=== PATIENT | male | born 1960 | race Caucasian/White ===

== ENCOUNTER → 2017-02-05 | Outpatient (CLI) | payer MEDICARE, OTHER ==
--- NOTE | 2017-02-05 15:34 | CT ---
EXAMINATION TYPE: CT chest w con DATE OF EXAM: 02/05/2017 2:10 PM COMPARISON: Prior CT chest 30 Mar 2016 HISTORY: Lung nodule Automated exposure control for dose reduction was used. CONTRAST: CT scan of the chest is performed with IV Contrast, patient injected with 100 mL of Omnipaque 300. FINDINGS: LUNGS: Stable appearance, extensive emphysematous changes are again noted. No endobronchial lesion, p leural or pericardial effusion. Apical nodularity in the right is stable, some minimal associated yennifer undglass opacity again noted felt likely to BE postinflammatory MEDIASTINUM: There are no greater than 1 cm hilar or mediastinal lymph nodes. No pericardial effusi on is seen. AORTA: No additional significant abnormality is seen. OTHER: No additional significant abnormality is seen. IMPRESSION: Essentially stable exam. No significant interval change. Emphysema.
== END | disposition home or self-care (01) ==
LOC: RADCTMAIN 13:02
PROVIDERS: ATTEND Internal Medicine Critical Care Medicine
DX: J43.9 Emphysema, unspecified (principal)
CPT/HCPCS: 71260; Q9967

== ENCOUNTER 2017-12-16 10:52 | Emergency (ER) | payer MEDICARE ==
--- NOTE | 2017-12-16 10:46 | US ---
EXAMINATION TYPE: US venous doppler duplex LE RT DATE OF EXAM: 12/16/2017 10:36 AM COMPARISON: NONE CLINICAL HISTORY: M79.661 Pain in Rt Lower Leg. SIDE PERFORMED: RT TECHNIQUE: The lower extremity deep venous system is examined utilizing real time linear array sonog татьяна with graded compression, doppler sonography and color-flow sonography. VESSELS IMAGED: External Iliac Vein (EIV) Common Femoral Vein Deep Femoral Vein Greater Saphenous Vein * Femoral Vein Popliteal Vein Small Saphenous Vein * Proximal Calf Veins (* superficial vessels) Grayscale, color doppler, spectral doppler imaging performed of the deep veins of the lower extremity . Filling defect noted within the mid femoral vein. DVT not excluded. Remaining deep venous structure s demonstrate normal compressibility and are free of filling defect. Subcutaneous nodular area at the site of clinical concern measures 9 x 5 mm. IMPRESSION: Right Leg: mid fem vein 0.7 cm filling defect , possible dvt
[2017-12-16 11:01] VITALS: PULSE 75
--- NOTE | 2017-12-16 11:47 | ED ---
General Adult HPI - General Chief complaint: Extremity Problem,Nontraumatic Stated complaint: RT LEG, POSITIVE BLOODCLOT Time Seen by Provider: 12/16/17 11:23 Source: patient, RN notes reviewed Mode of arrival: wheelchair Limitations: no limitations - History of Present Illness Initial comments: Patient 57-year-old male who presents emergency room today from ultrasound with possible blood clot. Patient states that there is some swelling and pain to the right calf approximately 3 weeks ago. States the swelling has decreased but has had a bump to the medial aspect. States he talked with family doctor but had a outpatient ultrasound performed today. He states that from ultrasound he was sent here to the emergency room. He denies any other complaints or associated symptoms. Denies any specific injury or trauma. Denies any shortness of breath or difficulty breathing. Patient denies any recent fever, chills, shortness of breath, chest pain, back pain, abdominal pain , nausea or vomiting, numbness or tingling, dysuria or hematuria, constipation or diarrhea, headaches or visual changes, or any other complaints. - Related Data Home Medications Medication Instructions Recorded Confirmed Diltiazem HCl [Diltiazem 24Hr ER] 180 mg PO DAILY 03/30/16 12/16/17 Isosorbide Mononitrate ER [Imdur] 30 mg PO DAILY 03/30/16 12/16/17 Baclofen [Lioresal] 20 mg PO BID 12/16/17 12/16/17 HYDROcodone/APAP 7.5-325MG [[place] 1 tab PO Q6H PRN 12/16/17 12/16/17 7.5-325] Previous Rx's Medication Instructions Recorded Aspirin EC [Ecotrin Low Dose] 81 mg PO DAILY #1 tablet. 03/31/16 Apixaban [Eliquis] 5 mg PO DIRECTED #28 tab 12/16/17 Allergies Allergy/AdvReac Type Severity Reaction Status Date / Time Penicillins Allergy Rash/Hives Verified 12/16/17 11:51 Review of Systems ROS Statement: Those systems with pertinent positive or pertinent negative responses have been documented in the HPI. ROS Other: All systems not noted in ROS Statement are negative. Past Medical History Past Medical History: Chest Pain / Angina, Hyperlipidemia, Hypertension, Prostate Disorder Additional Past Medical History / Comment(s): IBS, BPH History of Any Multi-Drug Resistant Organisms: None Reported Past Surgical History: Heart Catheterization, Hernia Repair, Orthopedic Surgery Additional Past Surgical History / Comment(s): 2013 cardiac cath-normal, R INGUINAL HERNIA, umbilical HERNIA, ARTHROSCOPY RT KNEE, prostate bx-negative, colonoscopy-normal. Past Anesthesia/Blood Transfusion Reactions: Postoperative Nausea & Vomiting ( PONV) Past Psychological History: No Psychological Hx Reported Smoking Status: Current every day smoker Past Alcohol Use History: None Reported Past Drug Use History: None Reported - Past Family History Father Family Medical History: Cancer Mother Family Medical History: No Reported History Additional Family Medical History / Comment(s): Mother is 75 yrs old. General Exam - General Exam Comments Initial Comments: General: The patient is awake and alert, in no distress, and does not appear acutely ill. Eye: Pupils are equal, round and reactive to light, extra-ocular movements are intact. No nystagmus. There is normal conjunctiva bilaterally. No signs of icterus. Ears, nose, mouth and throat: There are moist mucous membranes and no oral lesions. Neck: The neck is supple, there is no tenderness or JVD. Cardiovascular: There is a regular rate and rhythm. No murmur, rub or gallop is appreciated. Respiratory: Lungs are clear to auscultation, respirations are non-labored, breath sounds are equal. No wheezes, stridor, rales, or rhonchi. Musculoskeletal: Normal ROM. Palpable nodule area mid medial right calf. Strength 5/5. Sensation intact. Pulses equal bilaterally 2+. Neurological: A&O x 3. CN II-XII intact, There are no obvious motor or sensory deficits. Coordination appears grossly intact. Speech is normal. Skin: Skin is warm and dry and no rashes or lesions are noted. Psychiatric: Cooperative, appropriate mood & affect, normal judgment. Limitations: no limitations Course Vital Signs 12/16/17 10:59 Temperature 98.1 F Pulse Rate 75 Respiratory 15 Rate Blood Pressure 129/87 O2 Sat by Pulse 98 Oximetry Medical Decision Making - Medical Decision Making The patient's ultrasound has been reviewed and does show evidence for possible DVT. There is a simultaneous nodular area of the site measuring 9 x 5 mm. There is admitted for moral vein 0.77 cm filling defect which may be a possible DVT. Results were discussed with the patient. He described a incidents where he had some leg swelling 3 weeks ago has gone down. Patient will be treated for DVT started on eliquis. Starter pack is available at the pharmacy will be given first dose here. Advised to return to the emergency room symptoms increase worsen or for any concerns. Disposition Clinical Impression: DVT (deep venous thrombosis) Disposition: HOME SELF-CARE Condition: Stable Instructions: Deep Venous Thrombosis (ED) Additional Instructions: Please use medication as prescribed and follow-up the family doctor and vascular surgeon as discussed. Please return here to emergency room if any symptoms increase or worsen or for any other concerns. Prescriptions: Apixaban [Eliquis] 5 mg PO DIRECTED #28 tab Referrals: Sloan Zepeda III, MD [Primary Care Provider] - 1-2 days Oliver Moreau MD [STAFF PHYSICIAN] - 1-2 days Time of Disposition: 12:16
[2017-12-16] MEDS ORDERED: APIXABAN 5 MG TAB PO STA (12:11)
[2017-12-16 12:36] VITALS: BP 142/69; RESP 18; TEMP 98.2
== END 2017-12-16 12:36 | disposition home or self-care (01) ==
LOC: EC 10:52
DX: I82.401 Acute embolism and thrombosis of unspecified deep veins of right lower extremity (principal); I10 Essential (primary) hypertension; F17.200 Nicotine dependence, unspecified, uncomplicated; Z79.899 Other long term (current) drug therapy; Z88.0 Allergy status to penicillin; Z98.890 Other specified postprocedural states
CPT/HCPCS: 99283

== ENCOUNTER 2018-12-20 13:09 | Emergency (ER) | payer OTHER, MEDICARE ==
[2018-12-20 13:14] VITALS: RESP 18
[2018-12-20] MEDS ORDERED: HYDROcodone/APAP 5-325MG 1 EACH TAB PO STA (14:21)
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
--- NOTE | 2018-12-20 14:38 | XR ---
EXAM TYPE: LUMBAR SPINE X RAY SERIES COMPARISON: NONE HISTORY: Pain TECHNIQUE: 4 views are submitted. FINDINGS: Alignment is anatomic. The pedicles are intact. The transverse processes are intact. There is no s pondylolysis or spondylolisthesis. Hypertrophic and degenerative changes of the vertebral column. Ma rked facet arthropathy L4-5 and L5-S1. Vascular calcifications noted. There is a retrolisthesis of L3 on L4 by approximately 5 mm. IMPRESSION: 1. Multilevel degenerative disc disease and hypertrophic changes. Retrolisthesis of L3 on L4..
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
[2018-12-20 16:12] VITALS: BP 134/89; PULSE 73; TEMP 98.8
== END 2018-12-20 16:11 | disposition home or self-care (01) ==
LOC: EC 13:09
DX: M79.18 Myalgia, other site (principal); M51.36 Other intervertebral disc degeneration, lumbar region; M54.2 Cervicalgia; M25.552 Pain in left hip; I10 Essential (primary) hypertension; I25.10 Atherosclerotic heart disease of native coronary artery without angina pectoris; F17.200 Nicotine dependence, unspecified, uncomplicated; Z98.890 Other specified postprocedural states; Z79.899 Other long term (current) drug therapy; Z88.0 Allergy status to penicillin; V49.40XA Driver injured in collision with unspecified motor vehicles in traffic accident, initial encounter
CPT/HCPCS: 72050; 72100; 73502; 99284

== ENCOUNTER → 2019-01-11 | Outpatient (CLI) | payer OTHER ==
--- NOTE | 2019-01-11 08:20 | CT ---
EXAMINATION TYPE: CT brain wo/w con DATE OF EXAM: 01/11/2019 COMPARISON: 12/06/2011 CT brain and MRI brain dated 02/14/2016 HISTORY: Headache CT DLP: 2161 mGycm Automated Exposure Control for Dose Reduction was Utilized. TECHNIQUE: CT scan of the head is performed with IV contrast.,CT scan of the head is performed withou t and with without and with IV Contrast, patient injected with 100 mL of Isovue 300. FINDINGS: Noncontrast images show no acute intracranial hemorrhage or midline shift. No suspicious extra-axial fluid collection is seen. There is an elongated focal area of hypoattenuation within the right frontal lobe that is unchanged from the prior of 2012 representing nonspecific white matter jean nge. The other foci of white matter change seen on the prior MRI are not well visualized on CT given the increase sensitivity of MRI. Ventricles and sulci are within normal limits in size. Postcontrast images show no suspicious enhancing intraparenchymal mass. The globes are intact and the visualized s inuses are clear. Cerebellar tonsils are low-lying without herniation. IMPRESSION: 1. No acute intracranial hemorrhage, midline shift or mass effect. No abnormal intracranial enhanceme nt. 2. Resolution of the previously seen paranasal sinus mucosal thickening in comparison to the prior MR I of 2015. 3. Solitary focus of right frontal nonspecific white matter changes seen on the prior CT of 2011. The other foci of white matter change seen on the prior MRI are not visualized on CT. Again these may re present sequela of migraines or microangiopathy.
== END ==
LOC: RADCTMAIN 06:58
PROVIDERS: ATTEND Family Medicine
DX: R90.89 Other abnormal findings on diagnostic imaging of central nervous system (principal)
CPT/HCPCS: 70470; Q9967

== ENCOUNTER → 2019-03-15 | Outpatient (CLI) | payer MEDICARE ==
--- NOTE | 2019-03-17 12:45 | MR ---
EXAMINATION TYPE: MR Prostate wo/w con DATE OF EXAM: 03/15/2019 COMPARISON: None IMAGE QUALITY: Satisfactory. INDICATION: Elevated PSA PSA: 6.0 ng/ml Recent Biopsy and Date: 2013 Pathology Report (If Applicable): Benign prostatic tissue TECHNIQUE: Examination was performed using a 3T MRI without an endorectal coil. Multiparametric imaging was perf ormed with T2 mutliplanar sequences, axial diffusion weighted imaging and dynamic contrast enhanced i maging, utilizing 7 mL intravenous Gadavist gadolinium contrast. FINDINGS: There is no clinically significant cancer identified. PROSTATE VOLUME: 4.1 x 4.2 x 5.0 Vol= 45.1 cc (enlarged greater than 30 cc) PREDICTED PSA DENSITY: 5.4 ng/ml/cc Within the peripheral zone there are multiple linear wedge-shaped areas of T2 hypointensity. A 2 mm f ocus within the left lateral mid gland is contiguous with an area of linear fibrosis on small field o f view T2 image 17 and is hypointense both on DWI and ADC map suggesting fibrosis rather than a true lesion. Seminal vesicles are symmetric. Urinary bladder displays anterior wall thickening that is lik tammie related to incomplete distention. No local adenopathy. Few sigmoid diverticula are present withou t surrounding inflammatory change. Bone marrow signal appears within normal limits. IMPRESSION: A focus of clinically significant cancer is not identified. Mild benign prostatic hyperplasia and eric ear fibrosis within the peripheral zones that may be on the basis of prior prostatitis. Highest Assessment Category: 2 ? Low (clinically significant cancer is unlikely to be present) False negative rates for MRI range from 5-20% depending on risk profile. Assessment Categories: 1 ? Very low (clinically significant cancer is highly unlikely to be present) 2 ? Low (clinically significant cancer is unlikely to be present) 3 ? Intermediate (the presence of clinically significant cancer is equivocal) 4 ? High (clinically significant cancer is likely to be present) 5 ? Very high (clinically significant cancer is highly likely to be present) Locations: PZ = peripheral zone; TZ = transition zone CZ=central zone; AFS = anterior fibromuscular stroma a=anterior half (i.e. PZa=anterior half of peripheral zone); pm= posterior medial (i.e PZpm) pl = postero-lateral (i.e. PZpl); p = posterior half (i.e. TZp) ; a = anterior half (i.e TZa or P Za) Other: N=no or no; E= equivocal; Y=yes EPE = extraprostatic extension NVB = neurovascular bundle NA = not applicable/not available
== END ==
LOC: RADMRIMAIN 11:53
PROVIDERS: ATTEND Urology
DX: N40.0 Benign prostatic hyperplasia without lower urinary tract symptoms (principal)
CPT/HCPCS: 72197; A9585

== ENCOUNTER → 2019-05-12 | Outpatient (CLI) | payer MEDICARE | END | disposition home or self-care (01) | LOC: LABWHC1 07:21 | PROVIDERS: ATTEND Surgery Plastic and Reconstructive Surgery | DX: Z71.51 Drug abuse counseling and surveillance of drug abuser (principal) | CPT/HCPCS: 80307 ×2; G0482 ==

== ENCOUNTER → 2019-05-15 | Outpatient (CLI) | payer MEDICARE ==
[2019-05-15 15:05] LABS: HCT 46.3 % (39.0-53.0); HGB 15.5 gm/dL (13.0-17.5); MCH 28.9 pg (25.0-35.0); MCHC 33.4 g/dL (31.0-37.0); MCV 86.5 fL (80.0-100.0); Platelet Count 403 k/uL (150-450); RBC 5.35 m/uL (4.30-5.90); RDW 14.2 % (11.5-15.5); WBC 9.2 k/uL (3.8-10.6)
== END | disposition home or self-care (01) ==
LOC: LABPAT 13:47
PROVIDERS: ATTEND Surgery Plastic and Reconstructive Surgery
DX: Z01.818 Encounter for other preprocedural examination (principal)
CPT/HCPCS: 36415; 85027

== ENCOUNTER 2019-05-18 14:03 | Day surgery (SDC) | payer MEDICARE ==
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
[~2019-05-18 14:03] MED LIST: DEXAMETHASONE SOD PHOSPHATE 10 MG/ML 1 ML VIAL IV ONE; HEPARIN SODIUM,PORCINE 5,000 UNIT/ML 1 ML VIAL SQ ONE; LACTATED RINGERS 1,000 ML IV SCH; LIDOCAINE 1% 20 ML VIAL (10MG/ML) FOR IV START INTRADERMA PRN; ONDANSETRON 4 MG/2 ML VIAL IVP ONE; ONDANSETRON 4 MG/2 ML VIAL IVP PRN; ceFAZolin IN SWFI 2 GM/20 ML SYRINGE IVP ONE
[2019-05-18] MEDS ORDERED: MIDAZOLAM (PF) 2 MG/2 ML VIAL IVP ONE (15:11)
[2019-05-18] MEDS ORDERED: fentaNYL (PF) 50 MCG/ML 2 ML AMP IVP ONE (15:11)
--- NOTE | 2019-05-18 15:24 | P.ANPRN ---
Procedure Note - Anesthesia - Nerve Block Performed Bilateral Transversus Abdominis Single Time Out Performed: Yes Date of Procedure: 05/18/19 Procedure Start Time: 15:10 Procedure Stop Time: 15:20 Location of Patient Procedure: PreOp Indication: Acute Post-Operative Pain, Requested by physician (Dr Mccurdy) Specifically requested for management of pain by DrDer: Virginia Mccurdy Sedation Type: Sedate with meaningful contact maintained Preparation: Sterile Prep Position: Supine Catheter: None Needle Types: Facet Needle Gauge: 20 Technique: Ultrasound Injectate: 0.5% Ropivacaine (see comment for volume) (30 mls) Blood Aspirated: No Pain Paresthesia on Injection Noted: No Resistance on Injection: Normal Events: Uneventful and Well Tolerated
[2019-05-18] MEDS ORDERED: NEOSTIGMINE 1 MG/ML 10 ML VIAL ONE (16:40)
[2019-05-18] MEDS ORDERED: PROPOFOL 10 MG/ML 20 ML VIAL IV ONE (16:40)
[2019-05-18] MEDS ORDERED: GLYCOPYRROLATE 0.2 MG/ML 2 ML VIAL ONE (16:40)
[2019-05-18] MEDS ORDERED: PHENYLEPHRINE-0.9% NACL SYG 1 MG/10 ML SYRINGE ONE (16:40)
[2019-05-18] MEDS ORDERED: ROCURONIUM BROMIDE 10 MG/ML 10 ML VIAL IV ONE (16:40)
[2019-05-18] MEDS ORDERED: fentaNYL (PF) 50 MCG/ML 2 ML AMP ONE (16:40)
[2019-05-18] MEDS ORDERED: ROPIVACAINE 5 MG/ML 30 ML VIAL ONE (16:40)
[2019-05-18] MEDS ORDERED: SUCCINYLCHOLINE CHLORIDE 100 MG/5 ML SYR IV ONE (16:40)
[2019-05-18] MEDS ORDERED: MIDAZOLAM 2 MG/2 ML VIAL ONE (16:40)
[2019-05-18] MEDS ORDERED: LIDOCAINE 1% INJ 10MG/ML (20 ML MDV) ONE (16:40)
[2019-05-18] MEDS ORDERED: LIDOCAINE 1%-EPI 1:100,000 20 ML VIAL SQ ONE (16:47)
[2019-05-18] MEDS ORDERED: TAMSULOSIN 0.4 MG CAP.ER.24H PO STA ×2 (19:26→20:50)
[2019-05-18] MEDS: HYDROmorphone 0.5 MG/0.5 ML SYRINGE IVP PRN ×2 (19:28→19:33)
[2019-05-18] MEDS ORDERED: TAMSULOSIN 0.4 MG CAP.ER.24H PO ONE (19:55)
[2019-05-18] MEDS: KETOROLAC 30 MG/ML 1 ML VIAL IVP SCH ×3 (20:48→20:50)
[2019-05-18 20:55] VITALS: RESP 18; TEMP 97.5
--- NOTE | 2019-05-18 20:56 | P.OP ---
Date of Procedure: 05/18/19 Description of Procedure: SURGEON: VIRGINIA MCCURDY MD PREOPERATIVE DIAGNOSES: 1. Bilateral inguinal hernia, recurrent 2. History of congestive heart failure, diastolic 3. Chronic tobacco abuse 4. Chronic pain syndrome 5. Hyperlipidemia POSTOPERATIVE DIAGNOSES: 1. Bilateral inguinal hernia, recurrent, incarcerated 2. History of congestive heart failure, diastolic 3. Chronic tobacco abuse 4. Chronic pain syndrome 5. Hyperlipidemia 6. Recurrent direct inguinal right incarcerated hernia, 4 cm 7. Recurrent direct left inguinal hernia, incarcerated 3 cm OPERATION: 1. Robotic-assisted da Emmy Xi laparoscopic repair of recurrent incarcerated right direct inguinal hernia with mesh, 11.[address] 2. Robotic-assisted da Emmy Xi laparoscopic repair of recurrent incarcerated incarcerated left direct inguinal hernia with mesh, 11.[address] 3. Excision of mesh, foreign body right inguinal canal, 4 x 4 cm 4. Resection of incarcerated left inguinal lipoma, 3 cm x 4 5. Robotic-assisted da Emmy Xi laparoscopic lysis of adhesions over 1 hour performed for resection of mesh ANESTHESIA: General with local anesthetic ESTIMATED BLOOD LOSS: 5 mL. SPECIMENS: 1. Incarcerated right inguinal foreign body/mesh 4 x 4 centimeters 2. Left inguinal hernia sacWith lipoma, 3 x 4 cm COMPLICATIONS: None. INDICATIONS: The patient is a 58-year-old gentleman who presents with history of recurrent bilateral inguinal hernia. He reports moderate pain and palpable mass of the right groin. Now presents for definitive surgical intervention. Laparoscopic versus open and robotic approaches were discussed. Benefits and risks including bleeding, infection, injury to the vas deferens as well as sterility and chronic groin pain were reviewed. Placement of mesh was also described. Informed consent was obtained. DESCRIPTION: The patient was brought to the operating room and initially laid in supine position. The abdomen had been prepped and draped in standard sterile fashion. Ioban draping was also placed. Prior to incision, a timeout protocol was confirmed with surgical team regarding patient's name including procedures to be performed and location along the bilateral groins. Initial positioning for the robotic assisted ports were selected whereby 20 cm superior to the target anatomy, 0 degree 5 mm laparoscopic trocar entry was performed at the left upper quadrant. The abdomen was insufflated to 15 mmHg which he had tolerated well. Diagnostic laparoscopy demonstrated no injury to bowel, viscera or mesentery. Next, along the epigastrium, 8 mm robot trocar was placed. An 8-mm robotic trocar was placed under direct visualization at the right upper quadrant. An 8 mm port was placed at the left upper quadrant. All trocars were positioned between 10-cm apart from each other. The O[employer] Mungo XI robot was primed, draped, prepared for docking along upper abdomen of the patient. The patient was positioned 16 steep Trendelenburg position. I then went to the [employer] Xi console. The zoning assistant was at bedside for exchange of the robot arms and equipment. An adhesive band involving the base of the cecum to the abdominal wall was creating an internal hernia and resected. The left indirect inguinal hernia sac was evaginated whereby the peritoneum was scored using Endo scissors with cautery. Once completely reduced into the abdominal cavity, the peritoneal sac of the hernia was stripped. A large left inguinal lipoma deep into the subfascial area 3 x 4 cm were resected. A direct left inguinal hernia was confirmed. Separately, prior preperitoneal approach mesh was found with the at superior to the recurrent defect. The sac was resected and then passed off for further pathological analysis. The size of the hernia defect was 3 cm with intraoperative films obtained. Using a 2-0 VLOC, the peritoneal defect of the left inguinal hernia sites was closed using a running suture separately. The defect was found to be completely closed with complete reduction of the left direct inguinal hernia were confirmed. As an onlay, an 11.[address] mesh by [employer] was initially cut in half and entered into the abdominal cavity via the 8 mm trocar. The mesh was tacked to the pelvis using 2-0 VLOC 12-inch length sutures. Next, careful attention along the right groin demonstrated a previous preperitoneal approach inguinal hernia repair however a plug type mesh was warped into a large ball along the groin consistent with the patient's pain and foreign body sensation. Careful dissection was performed using a combination of Bovie scissors including vessel sealer to circumferentially dissect and remove the mesh. The iliac artery and vein was also adhesed to the mesh and carefully resected leaving some mesh onto the vessels without iatrogenic injury. Separately, the vas deferens was also warped into the plug mesh apparatus with ischemia and adhesions. As a result, safe resection of the plug mesh was performed without iatrogenic injury to the great vessels of the right groin. The floor of the right groin was voided as the mesh had been removed. The right recurrent inguinal hernia sac was evaginated whereby the peritoneum was scored using Endo scissors with cautery. The foreign body/mesh and sac was resected and then passed off for further pathological analysis. The size of the hernia defect was 4 cm with intraoperative films obtained. Using a 2-0 VLOC, the peritoneal defect of the right inguinal hernia site was closed using a running suture. The defect was found to be completely closed with complete reduction of the right direct inguinal hernia was confirmed. As an onlay, an 11.[address] mesh by [employer] was initially cut in half and entered into the abdominal cavity via the 8 mm trocar. The mesh was tacked to the pelvis using 2-0 VLOC 12-inch length sutures. The robot was undocked from the patient's bedside. I then rescrubbed into the case. Insufflation was released from the abdominal cavity and all instruments were removed from the abdominal cavity. The rest of incisions were reapproximated using 4-0 Monocryl in a running subcuticular fashion. Local anesthetic was placed along the incision including for a bilateral groin block. Incisions were cleansed using dilute hydrogen peroxide. Liquid glue was applied to the skin. At the end of the procedure, the needle, sponge and instrument counts had been verified correct by the surgical garment inspector. The patient had tolerated the procedure well and was taken to the postanesthesia care unit in stable condition. FINDINGS: 1. Incarcerated recurrent right inguinal hernia, 4 cm, direct with foreign bod y/mesh excised 2. Recurrent direct left incarcerated inguinal lipoma, 3 cm resected 3. An adhesive band involving the base of the cecum to the abdominal wall was creating an internal hernia and resected. Plan - Discharge Summary Discharge Rx Participant: Yes New Discharge Prescriptions: New Tamsulosin [Flomax] 0.4 mg PO DAILY #7 cap Ibuprofen [Motrin] 600 mg PO Q8HR PRN #30 tab PRN Reason: Pain Continue Isosorbide Mononitrate ER [Imdur] 30 mg PO DAILY Diltiazem HCl [Diltiazem 24Hr ER ([place])] 180 mg PO DAILY Aspirin EC [Ecotrin Low Dose] 81 mg PO DAILY #1 tablet.dr HYDROcodone/APAP 7.5-325MG [[place] 7.5-325] 1 tab PO Q6H PRN PRN Reason: Pain Baclofen [Lioresal] 20 mg PO Q8HR PRN PRN Reason: Migraine Headache Atorvastatin (Unknown Dose) 1 tab PO HS Discharge Medication List Diltiazem HCl [Diltiazem 24Hr ER ([place])] 180 mg PO DAILY 03/30/16 [History] Isosorbide Mononitrate ER [Imdur] 30 mg PO DAILY 03/30/16 [History] Aspirin EC [Ecotrin Low Dose] 81 mg PO DAILY #1 tablet. 03/31/16 [Rx] Baclofen [Lioresal] 20 mg PO Q8HR PRN 12/16/17 [History] HYDROcodone/APAP 7.5-325MG [[place] 7.5-325] 1 tab PO Q6H PRN 12/16/17 [History] Atorvastatin (Unknown Dose) 1 tab PO HS 05/15/19 [History] Ibuprofen [Motrin] 600 mg PO Q8HR PRN #30 tab 05/18/19 [Rx] Tamsulosin [Flomax] 0.4 mg PO DAILY #7 cap 05/18/19 [Rx] Follow up Appointment(s)/Referral(s): Virginia Mccurdy MD [STAFF PHYSICIAN] - 05/30/19 Patient Instructions/Handouts: Laparoscopic Herniorrhaphy ([place]) Activity/Diet/Wound Care/Special Instructions: No lifting over 4 pounds for 10 days, until May 27. May shower. No bathtub soaks until May 27. Use ice for bilateral groin for pain. Discharge Disposition: HOME SELF-CARE
[2019-05-18 20:57] VITALS: BP 155/81; PULSE 65
--- NOTE | 2019-05-18 20:57 | P.PN ---
Progress Note - Text Progress Note Date: 05/18/19 Patient reports right right groin pain and swelling completely resolved. He is happy with the surgical results. Recommend Flomax. Patient may be discharged with recommendations of follow-up in the ER if unable to urinate by morning.
[2019-05-18 20:59] VITALS: BMI 20.9
== END 2019-05-18 21:30 | disposition home or self-care (01) ==
LOC: OR 14:03 → 4SSUR 19:11 → OR 21:30
PROVIDERS: ATTEND Surgery Plastic and Reconstructive Surgery
DX: K40.01 Bilateral inguinal hernia, with obstruction, without gangrene, recurrent (principal); E78.5 Hyperlipidemia, unspecified; I25.2 Old myocardial infarction; I11.0 Hypertensive heart disease with heart failure; I50.32 Chronic diastolic (congestive) heart failure; G89.4 Chronic pain syndrome; K66.0 Peritoneal adhesions (postprocedural) (postinfection); M19.90 Unspecified osteoarthritis, unspecified site; N40.0 Benign prostatic hyperplasia without lower urinary tract symptoms; F17.210 Nicotine dependence, cigarettes, uncomplicated; Z88.0 Allergy status to penicillin; Z79.82 Long term (current) use of aspirin; Z79.899 Other long term (current) drug therapy; Z79.891 Long term (current) use of opiate analgesic
CPT/HCPCS: 49651; 64488; J2250 ×2; J1644; J1100; J2710; J2405; J2001; J3010; J2795; J2370; J0330; J2704; J1170; 88304; 88305

== ENCOUNTER → 2019-07-28 | Outpatient (CLI) | payer OTHER ==
--- NOTE | 2019-07-28 13:51 | XR ---
EXAMINATION TYPE: XR cervical spine comp DATE OF EXAM: 07/28/2019 COMPARISON: NONE HISTORY: Pain TECHNIQUE: Four views are submitted. FINDINGS: The odontoid is intact. There are no compression deformities. The prevertebral soft tissue structur es are within normal limits. Hypertrophic and degenerative change of the spine noted. There is sever e degenerative disc disease C5-6 and C6-C7 with posterior spondylosis and retrolisthesis. Multilevel facet arthropathy. Foraminal encroachment C3-4, C5-6 and C6-C7 suspected. IMPRESSION: 1. Multilevel severe degenerative disc disease with foraminal encroachment suspected. Recommend follo w-up MRI. Posterior spondylosis and retrolisthesis C5-6 and C6-C7 could be associated with spinal petey nosis..
== END | disposition home or self-care (01) ==
LOC: RADXRMAIN 12:56
PROVIDERS: ATTEND Family Medicine
DX: M43.12 Spondylolisthesis, cervical region (principal); M47.812 Spondylosis without myelopathy or radiculopathy, cervical region
CPT/HCPCS: 72050

== ENCOUNTER → 2019-08-01 | Outpatient (CLI) | payer MEDICARE | END | disposition home or self-care (01) | LOC: LABWHC1 14:57 | PROVIDERS: ATTEND Urology | DX: R97.20 Elevated prostate specific antigen [PSA] (principal) | CPT/HCPCS: 36415; 84153 ==

== ENCOUNTER → 2019-08-18 | Outpatient (CLI) | payer OTHER ==
--- NOTE | 2019-08-18 18:55 | MR ---
EXAMINATION TYPE: MR cervical spine wo con DATE OF EXAM: 08/18/2019 COMPARISON: None HISTORY: Cervical disc degeneration, pain, LEMON, weakness TECHNIQUE: Multiplanar, multisequence images of the cervical spine were acquired. There is mild straightening of the vertebra. There is degenerative spurring anteriorly at C3-4 and C5-6. There is disc space narrow ing at C5-6 C6-7. There is an elongated 8 x 3 mm area of fluid signal within the central spinal cord at the C3 level. The brainstem is intact. There is no significant spinal stenosis. There is developme ntally large spinal canal. There is posterior endplate spur formation at C5-6 C6-7 and the spinal can al measures more than 9 mm. There is no paraspinal mass. Posterior elements are intact. IMPRESSION: Spondylotic changes. There is a small syrinx in the spinal cord at the C3 level. No evidence of under lying mass. No significant spinal stenosis.
== END | disposition home or self-care (01) ==
LOC: RADMRIMAIN 17:43
PROVIDERS: ATTEND Physician Assistant
DX: M47.812 Spondylosis without myelopathy or radiculopathy, cervical region (principal); G95.9 Disease of spinal cord, unspecified
CPT/HCPCS: 72141

== ENCOUNTER → 2020-10-23 | Outpatient (CLI) | payer MEDICARE | END | disposition home or self-care (01) | LOC: LABWHC1 07:43 | PROVIDERS: ATTEND Urology | DX: R97.20 Elevated prostate specific antigen [PSA] (principal) | CPT/HCPCS: 36415; 84153 ==

== ENCOUNTER → 2021-01-17 | Outpatient (CLI) | payer MEDICARE ==
--- NOTE | 2021-01-17 10:08 | US ---
EXAMINATION TYPE: US groin RT DATE OF EXAM: 01/17/2021 COMPARISON: NONE CLINICAL HISTORY: R10.31 RLQ PAIN. Medial right groin pain x 2 months. Hernia repairs in this area x 3 per patient. Right groin US: multiple lymph nodes are seen with largest noted inferiorly = 2.9 x 1.7 x 0.6cm. Sm all lymph node seen medial to inferior epigastric arteries at right groin = 0.7 x 0.6 x 0.3cm. No hernia is seen right groin when assessing area at level of hypogastric artery with and without Keerthi milagros Maneuver. IMPRESSION: 1. Right inguinal adenopathy. 2. No obvious hernia
== END | disposition home or self-care (01) ==
LOC: RADUSWWP 07:33
PROVIDERS: ATTEND Family Medicine
DX: R59.0 Localized enlarged lymph nodes (principal)

== ENCOUNTER → 2021-01-29 | Outpatient (CLI) | payer MEDICARE ==
--- NOTE | 2021-01-29 11:31 | XR ---
EXAMINATION TYPE: XR chest 2V DATE OF EXAM: 01/29/2021 COMPARISON: Chest x-ray 03/30/2016 HISTORY: Dyspnea on exertion TECHNIQUE: Frontal and lateral views of the chest are obtained. FINDINGS: There is no focal air space opacity, pleural effusion, or pneumothorax seen. The cardiac silhouette size is within normal limits. The osseous structures are intact. IMPRESSION: No acute cardiopulmonary process.
== END | disposition home or self-care (01) ==
LOC: RADXRMAIN 09:01
PROVIDERS: ATTEND Family Medicine
DX: R06.09 Other forms of dyspnea (principal)
CPT/HCPCS: 71046

== ENCOUNTER → 2021-03-06 | Outpatient (CLI) | payer MEDICARE ==
--- NOTE | 2021-03-07 08:11 | ECHOS ---
STRESS ECHOCARDIOGRAM LUMASON: N/A Vial INDICATIONS: Pre-op cardiac evaluation. MEDICATIONS: BASELINE HEART RATE: 71 BASELINE BLOOD PRESSURE: 115/78 MAXIMUM HEART RATE: 144 MAXIMUM BLOOD PRESSURE: 208/49 85% MPHR: 137 100% MPHR: 161 METS: 6 MAXIMUM STAGE REACHED: II TOTAL EXERCISE TIME: 5 minutes CLINICAL INFORMATION: Baseline EKG shows sinus rhythm, normal axis, normal intervals. Patient exercised on Corey protocol for a total of 5 minutes achieving 6 METs, 89% of predicted maximal heart rate without chest pain or diagnostic ST-segment depression. Baseline echo shows normal left ventricular size, wall motion and systolic function. Postexercise, there is normal hyperdynamic response of all segments of myocardium noted. CONCLUSIONS: 1. Limited exercise tolerance. 2. Negative stress echo. MMODL / IJN: [id number] /
== END | disposition home or self-care (01) ==
LOC: RADNMMAIN 09:05
PROVIDERS: ATTEND Internal Medicine Cardiovascular Disease
DX: Z01.810 Encounter for preprocedural cardiovascular examination (principal)
CPT/HCPCS: 93351

== ENCOUNTER 2021-03-13 09:02 | Day surgery (SDC) | payer MEDICARE ==
[2021-03-12 09:27] VITALS: BMI 22.0
[~2021-03-13 09:02] MED LIST changes: -DEXAMETHASONE SOD PHOSPHATE 10 MG/ML 1 ML VIAL IV ONE; +DEXAMETHASONE SOD PHOSPHATE 4 MG/ML 1 ML VIAL IV ONE; -HEPARIN SODIUM,PORCINE 5,000 UNIT/ML 1 ML VIAL SQ ONE; +HEPARIN SODIUM,PORCINE/PF 5,000 UNIT/0.5 ML SYRINGE SQ PRN; +HYDROmorphone 0.5 MG/0.5 ML SYRINGE IVP PRN; -LIDOCAINE 1% 20 ML VIAL (10MG/ML) FOR IV START INTRADERMA PRN; -ONDANSETRON 4 MG/2 ML VIAL IVP PRN; -ceFAZolin IN SWFI 2 GM/20 ML SYRINGE IVP ONE
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
[2021-03-13] MEDS ORDERED: TAMSULOSIN 0.4 MG CAP.ER.24H PO PRN (10:21)
[2021-03-13] MEDS ORDERED: MELOXICAM 7.5 MG TAB PO PRN (10:21)
[2021-03-13] MEDS ORDERED: GABAPENTIN 300 MG CAP PO PRN (10:21)
[2021-03-13] MEDS ORDERED: ACETAMINOPHEN TAB 500 MG TAB PO PRN (10:21)
[2021-03-13] MEDS ORDERED: SODIUM CHLORIDE 0.9% 100 ML BAG ONE (11:41)
[2021-03-13] MEDS ORDERED: DEXAMETHASONE SOD PHOSPHATE 10 MG/ML 1 ML VIAL ONE (11:41)
[2021-03-13] MEDS ORDERED: ceFAZolin 1,000 MG VIAL ONE (11:41)
[2021-03-13] MEDS ORDERED: KETOROLAC 15 MG/ML 1 ML VIAL ONE (11:41)
[2021-03-13] MEDS ORDERED: MIDAZOLAM 2 MG/2 ML VIAL ONE (11:41)
[2021-03-13] MEDS ORDERED: ePHEDrine SULFATE/0.9% NACL/PF 50 MG/5 ML SYRINGE IV ONE (11:41)
[2021-03-13] MEDS ORDERED: LIDOCAINE 1%-EPI 1:100,000 20 ML VIAL SQ ONE ×2 (11:41→12:12)
[2021-03-13] MEDS ORDERED: SUCCINYLCHOLINE CHLORIDE 100 MG/5 ML SYR IV ONE (11:41)
[2021-03-13] MEDS ORDERED: PROPOFOL 10 MG/ML 20 ML VIAL IV ONE (11:41)
[2021-03-13] MEDS ORDERED: LIDOCAINE 1% INJ 10MG/ML (20 ML MDV) ONE (11:41)
[2021-03-13] MEDS ORDERED: fentaNYL (PF) 50 MCG/ML 2 ML AMP ONE (11:41)
[2021-03-13] MEDS ORDERED: KETAMINE 10 MG/ML 20 ML VIAL ONE (11:41)
[2021-03-13] MEDS ORDERED: ACETAMINOPHEN IV (For NPO) 1,000 MG/100 ML VIAL ONE (11:41)
[2021-03-13 13:07] VITALS: TEMP 97.1
--- NOTE | 2021-03-13 13:10 | P.OP ---
Date of Procedure: 03/13/21 Description of Procedure: SURGEON: VIRGINIA MCCURDY MD CORRECTIONS NURSE: None. PREOPERATIVE DIAGNOSIS: 1. Right inguinal lymphadenopathy. 2. Right groin pain 3. Chronic pain syndrome 4. Hypertensive heart disease with ischemic cardiomyopathy 5. Tobacco abuse disorder 6. Hyperlipidemia POSTOPERATIVE DIAGNOSIS: 1. Right inguinal lymphadenopathy. 2. Right groin pain 3. Chronic pain syndrome 4. Hypertensive heart disease with ischemic cardiomyopathy 5. Tobacco abuse disorder 6. Hyperlipidemia OPERATION: 1. Excision of right deep inguinal lymph node with hand-held LigaSure. ANESTHESIA: GETA with local ESTIMATED BLOOD LOSS: 5 mL. SPECIMENS REMOVED: Right inguinal deep lymph node biopsy sent fresh. COMPLICATIONS: None. FINDINGS: 1. Subfascial deep right inguinal lymph node excised. 2. Separate deep right inguinal lymph node adherent to the femoral vessels undisturbed. INDICATIONS: The patient is a pleasant 60-year-old gentleman who presents with history of adenopathy of the right groin persistent over 3 months with pain. Surgical options were discussed biopsy of the lymph node. Benefits and risk were described. Informed consent was obtained. DESCRIPTION OF PROCEDURE: Patient was brought into the operating room, laid in supine position. After adequate general induction, the right groin neck was prepped and draped in standard sterile fashion. After timeout protocol was confirmed with the surgical team, a field block was created using local anesthetic. Additionally, please note preoperative medication particularly of IV antibiotics where given. Bilateral SCDs for DVT prophylaxis had been confirmed. After a field block was secured, a transverse 6 cm incision along the skin tension lines was made using a #15 blade anterior to the right groin. Using hemostats, LigaSure and electro- Bovie cautery, the lymph node over 2 cm in size was excised circumferentially. Care was taken to avoid any injury to neurovascular structures. No rupture of the lymph node had occurred upon complete excision with a hand held Ligasure. The specimen was then passed off. Hemostasis was checked with electro- Bovie cautery. Local anesthetic was infiltrated to the entire wound for postop analgesia. The wound was closed in layers of the deep fascia using 0 Vicryl in interrupted fashion. Next for the dermis 3-0 Vicryl interrupted fashion was placed. Finally, a 4-0 Monocryl in a running subcuticular fashion was placed. Once the wound was dry, Exfoin tape was placed. Optifoam was placed.. At the end of the procedure, needle, sponge and instrument counts had been verified correct by film laboratory technician. The patient had excellent pain control and was taken to the postanesthesia care unit in stable condition. The patient and family were pleased with level of care. Plan - Discharge Summary Discharge Rx Participant: No New Discharge Prescriptions: New Acetaminophen [Tylenol] 650 mg PO Q6HR #30 tab Continue Isosorbide Mononitrate ER [Imdur] 30 mg PO DAILY Diltiazem HCl [Diltiazem HCl 24Hr ER ([place])] 180 mg PO DAILY Aspirin EC [Ecotrin Low Dose] 81 mg PO DAILY #1 tablet. HYDROcodone/APAP 7.5-325MG [[place] 7.5-325] 1 tab PO Q4HR PRN PRN Reason: Pain Baclofen [Lioresal] 20 mg PO QID PRN PRN Reason: Pain Atorvastatin (Unknown Dose) 1 tab PO DAILY Discharge Medication List Diltiazem HCl [Diltiazem HCl 24Hr ER ([place])] 180 mg PO DAILY 03/30/16 [History] Isosorbide Mononitrate ER [Imdur] 30 mg PO DAILY 03/30/16 [History] Aspirin EC [Ecotrin Low Dose] 81 mg PO DAILY #1 tablet. 03/31/16 [Rx] Baclofen [Lioresal] 20 mg PO QID PRN 12/16/17 [History] HYDROcodone/APAP 7.5-325MG [[place] 7.5-325] 1 tab PO Q4HR PRN 12/16/17 [History] Atorvastatin (Unknown Dose) 1 tab PO DAILY 05/15/19 [History] Acetaminophen [Tylenol] 650 mg PO Q6HR #30 tab 03/13/21 [Rx] Follow up Appointment(s)/Referral(s): Virginia Mccurdy MD [STAFF PHYSICIAN] - 03/18/21 Patient Instructions/Handouts: Lymphadenopathy (ED), [place] Lymph Node Biopsy (DC) Activity/Diet/Wound Care/Special Instructions: See instructions on dressing. DO NOT REMOVE DRESSING. No lifting over 10 pounds in 2 weeks, March 27 May shower. No bath tub soaks for two weeks, March 27 Use ice along incisions as needed. Expect swelling and bruising. Diet as tolerated. Discharge Disposition: HOME SELF-CARE
[2021-03-13] MEDS ORDERED: LACTATED RINGERS 1,000 ML IV ONE (13:23)
[2021-03-13 13:53] VITALS: RESP 14
[2021-03-13 14:04] VITALS: BP 122/68; PULSE 78
== END 2021-03-13 14:14 | disposition home or self-care (01) ==
LOC: OR 09:02
PROVIDERS: ATTEND Surgery Plastic and Reconstructive Surgery
DX: D76.3 Other histiocytosis syndromes (principal); I11.9 Hypertensive heart disease without heart failure; E78.5 Hyperlipidemia, unspecified; I25.10 Atherosclerotic heart disease of native coronary artery without angina pectoris; I25.5 Ischemic cardiomyopathy; F17.210 Nicotine dependence, cigarettes, uncomplicated; G89.4 Chronic pain syndrome; I10 Essential (primary) hypertension; I25.2 Old myocardial infarction; N40.0 Benign prostatic hyperplasia without lower urinary tract symptoms; Z98.890 Other specified postprocedural states; Z80.9 Family history of malignant neoplasm, unspecified; Z79.82 Long term (current) use of aspirin; Z79.891 Long term (current) use of opiate analgesic; Z79.899 Other long term (current) drug therapy; Z88.0 Allergy status to penicillin
CPT/HCPCS: 38531; 88307; J2250; J1100 ×2; J2405; J0690; J2001; J3010; J0131; J1885; J0330; J2704; J1170; J1644

== ENCOUNTER 2021-05-17 15:32 | Emergency (ER) | payer MEDICARE ==
[2021-05-17 15:44] VITALS: RESP 18; TEMP 98.1
[2021-05-17] MEDS ORDERED: SODIUM CHLORIDE 0.9% 1,000 ML IV STA (16:01)
[2021-05-17 16:46] LABS: Basophils # (A) 0.1 k/uL (0-0.2); Basophils % (A) 1 %; Eosinophils # (A) 0.1 k/uL (0-0.7); Eosinophils % (A) 3 %; HCT 38.3 % (39.0-53.0); HGB 13.6 gm/dL (13.0-17.5); Lymphocytes # (A) 1.5 k/uL (1.0-4.8); Lymphocytes % (A) 36 %; MCHC 35.4 g/dL (31.0-37.0); MCV 87.6 fL (80.0-100.0); Mean Platelet Volume 8.5; Monocytes # (A) 0.3 k/uL (0-1.0); Monocytes % (A) 8 %; Neutrophils # (A) 2.1 k/uL (1.3-7.7); Neutrophils % (A) 50 %; Platelet Count 115 k/uL (150-450); RBC 4.38 m/uL (4.30-5.90); RDW 13.3 % (11.5-15.5); WBC 4.2 k/uL (3.8-10.6)
[2021-05-17 16:55] LABS: Appearance,Urine Clear (Clear); Bilirubin,Urine Negative (Negative); Blood,Urine Negative (Negative); Color,Urine Light Yellow; Glucose,Urine (UA) Negative (Negative); Ketones,Urine Negative (Negative); Leukocyte Esterase,Urine Negative (Negative); Nitrite,Urine Negative (Negative); PH, Urine 6.5 (5.0-8.0); Protein,Urine Negative (Negative); Specific Gravity,Urine 1.005 (1.001-1.035); Urobilinogen,Urine <2.0 mg/dL (<2.0)
[2021-05-17 16:58] LABS: ALT 10 U/L (4-49); AST 24 U/L (17-59); African American GFR (CKD) >90 (>60 ml/min/1.73 sqM); Alkaline Phosphatase 66 U/L (38-126); Amylase 50 U/L (30-110); Anion Gap 5 mmol/L; Blood Urea Nitrogen 10 mg/dL (9-20); Calcium 9.3 mg/dL (8.4-10.2); Carbon Dioxide 27 mmol/L (22-30); Chloride 108 mmol/L (98-107); Glucose 84 mg/dL (74-99); Lipase 40 U/L (23-300); Magnesium 2.4 mg/dL (1.6-2.3); Non-African American GFR(CKD) >90 (>60 ml/min/1.73 sqM); Sodium 140 mmol/L (137-145); Total Bilirubin 0.5 mg/dL (0.2-1.3); Total Protein 6.3 g/dL (6.3-8.2)
[2021-05-17 17:01] LABS: Potassium 4.1 mmol/L (3.5-5.1)
[2021-05-17 17:21] LABS: INR 0.9 (<1.2); Partial Thromboplastin Time 27.5 sec (22.0-30.0); Prothrombin Time 10.2 sec (9.0-12.0)
--- NOTE | 2021-05-17 17:24 | XR ---
EXAMINATION TYPE: XR chest 2V DATE OF EXAM: 05/17/2021 COMPARISON: 01/29/2021 HISTORY: Chest pain TECHNIQUE: FINDINGS: Heart and mediastinum are normal. Lungs are clear. Diaphragm is normal. Bony thorax is inta ct. IMPRESSION: Normal chest. No change.
--- NOTE | 2021-05-17 17:55 | ED ---
Recheck HPI - General Chief Complaint: Recheck/Abnormal Lab/Rx Stated Complaint: medication reaction Time Seen by Provider: 05/17/21 15:55 Source: patient, RN notes reviewed Mode of arrival: ambulatory Limitations: no limitations - History of Present Illness Initial Comments: Patient is a 60-year-old male that presents to the emergency department compla ining of feeling tired and off after starting a new blood pressure medication 3 days ago. He notes that his primary care started him on Cozaar 3 days ago for blood pressure management. Patient notes that the first couple days he felt fatigued tired and a little off. He notes that he did not take that medication today and feels slightly better. He notes that he tried calling his paraffin machine operator as he does have some cardiac history. Patient notes that he left a voice no for paraffin machine operator but did not receive a call back so he came to the emergency room. Patient was in no apparent distress or pain while sitting up in bed during the exam and interview. He denied any new chest pain shortness br eath headache nausea vomiting diarrhea constipation fever fatigue chills. - Related Data Home Medications Medication Instructions Recorded Confirmed Diltiazem HCl [Diltiazem HCl 24Hr 180 mg PO DAILY 03/30/16 03/12/21 ER ([place])] Isosorbide Mononitrate ER [Imdur] 30 mg PO DAILY 03/30/16 03/12/21 Baclofen [Lioresal] 20 mg PO QID PRN 12/16/17 03/12/21 HYDROcodone/APAP 7.5-325MG [[place] 1 tab PO Q4HR PRN 12/16/17 03/12/21 7.5-325] Atorvastatin (Unknown Dose) 1 tab PO DAILY 05/15/19 03/12/21 Previous Rx's Medication Instructions Recorded Aspirin EC [Ecotrin Low Dose] 81 mg PO DAILY #1 tablet. 03/31/16 Acetaminophen [Tylenol] 650 mg PO Q6HR #30 tab 03/13/21 Allergies Allergy/AdvReac Type Severity Reaction Status Date / Time Penicillins Allergy Rash/Hives Verified 03/12/21 08:53 Review of Systems ROS Statement: Those systems with pertinent positive or pertinent negative responses have been documented in the HPI. ROS Other: All systems not noted in ROS Statement are negative. Past Medical History Past Medical History: Chest Pain / Angina, Hyperlipidemia, Hypertension, Myocardial Infarction ([place]), Osteoarthritis (OA), Prostate Disorder Additional Past Medical History / Comment(s): BPH, DDD, SHATTERED HEELS 2012 , SWOLLEN LYMPH NODE RIGHT GROIN. Last Myocardial Infarction Date:: 2011 History of Any Multi-Drug Resistant Organisms: None Reported Past Surgical History: Heart Catheterization, Hernia Repair, Orthopedic Surgery Additional Past Surgical History / Comment(s): 2013 cardiac cath-normal, R INGUINAL HERNIA, umbilical HERNIA, ARTHROSCOPY RT KNEE, prostate bx-negative, colonoscopy Past Anesthesia/Blood Transfusion Reactions: No Reported Reaction Additional Past Anesthesia/Blood Transfusion Reaction / Comment(s): . Past Psychological History: No Psychological Hx Reported Smoking Status: Current every day smoker Past Alcohol Use History: None Reported Past Drug Use History: None Reported - Past Family History Father Family Medical History: Cancer Mother Family Medical History: No Reported History Additional Family Medical History / Comment(s): . General Exam Limitations: no limitations General appearance: alert, in no apparent distress Head exam: Present: atraumatic, normocephalic, normal inspection Eye exam: Present: normal appearance, PERRL, EOMI. Absent: scleral icterus, conjunctival injection, periorbital swelling Neck exam: Present: normal inspection. Absent: tenderness, meningismus, lymphadenopathy Respiratory exam: Present: normal lung sounds bilaterally. Absent: respiratory distress, wheezes, rales, rhonchi, stridor Cardiovascular Exam: Present: regular rate, normal rhythm, normal heart sounds. Absent: systolic murmur, diastolic murmur, rubs, gallop, clicks GI/Abdominal exam: Present: soft, normal bowel sounds. Absent: distended, tenderness, guarding, rebound, rigid Extremities exam: Present: normal inspection, full ROM, normal capillary refill. Absent: tenderness, pedal edema, joint swelling, calf tenderness Neurological exam: Present: alert, oriented X3 Psychiatric exam: Present: normal affect, normal mood Skin exam: Present: warm, dry, intact, normal color. Absent: rash Course Vital Signs 05/17/21 15:41 Temperature 98.1 F Pulse Rate 61 Respiratory 18 Rate Blood Pressure 152/90 O2 Sat by Pulse 98 Oximetry Medical Decision Making - Medical Decision Making 60-year-old male complaining of being tired fatigue and out of it after starting a new blood pressure medication 3 days ago. Labs, EKG, chest x-ray, school bus monitor, 1 L normal saline ordered. Patient's labs unremarkable compared to previous studies. EKG similar to previous studies. Given clinical symptoms and tests most likely in adverse reaction to blood pressure medication. Case discussed with Dr. Suggs, patient can discharge home with close follow-up to paraffin machine operator. - Lab Data Result diagrams: 05/17/21 16:38 05/17/21 16:38 Lab Results 05/17/21 05/17/21 05/17/21 Range/Units 16:38 16:38 16:38 WBC 4.2 (3.8-10.6) k/uL RBC 4.38 (4.30-5.90) m/uL Hgb 13.6 (13.0-17.5) gm/dL Hct 38.3 L (39.0-53.0) % MCV 87.6 (80.0-100.0) fL MCH 31.0 (25.0-35.0) pg MCHC 35.4 (31.0-37.0) g/dL RDW 13.3 (11.5-15.5) % Plt Count 115 L (150-450) k/uL MPV 8.5 Neutrophils % 50 % Lymphocytes % 36 % Monocytes % 8 % Eosinophils % 3 % Basophils % 1 % Neutrophils # 2.1 (1.3-7.7) k/uL Lymphocytes # 1.5 (1.0-4.8) k/uL Monocytes # 0.3 (0-1.0) k/uL Eosinophils # 0.1 (0-0.7) k/uL Basophils # 0.1 (0-0.2) k/uL PT (9.0-12.0) sec INR (<1.2) APTT (22.0-30.0) sec Sodium 140 (137-145) mmol/L Potassium 4.1 (3.5-5.1) mmol/L Chloride 108 H (98-107) mmol/L Carbon Dioxide 27 (22-30) mmol/L Anion Gap 5 mmol/L BUN 10 (9-20) mg/dL Creatinine 0.80 (0.66-1.25) mg/dL Est GFR (CKD-EPI)AfAm >90 (>60 ml/min/1.73 sqM) Est GFR (CKD-EPI)NonAf >90 (>60 ml/min/1.73 sqM) Glucose 84 (74-99) mg/dL Calcium 9.3 (8.4-10.2) mg/dL Magnesium 2.4 H (1.6-2.3) mg/dL Total Bilirubin 0.5 (0.2-1.3) mg/dL AST 24 (17-59) U/L ALT 10 (4-49) U/L Alkaline Phosphatase 66 (38-126) U/L Troponin I (0.000-0.034) ng/mL Total Protein 6.3 (6.3-8.2) g/dL Albumin 4.0 (3.5-5.0) g/dL Amylase 50 (30-110) U/L Lipase 40 (23-300) U/L Urine Color Light Yellow Urine Appearance Clear (Clear) Urine pH 6.5 (5.0-8.0) Ur Specific [place] 1.005 (1.001-1.035) Urine Protein Negative (Negative) Urine Glucose (UA) Negative (Negative) Urine Ketones Negative (Negative) Urine Blood Negative (Negative) Urine Nitrite Negative (Negative) Urine Bilirubin Negative (Negative) Urine Urobilinogen <2.0 (<2.0) mg/dL Ur Leukocyte Esterase Negative (Negative) 05/17/21 05/17/21 Range/Units 16:38 17:00 WBC (3.8-10.6) k/uL RBC (4.30-5.90) m/uL Hgb (13.0-17.5) gm/dL Hct (39.0-53.0) % MCV (80.0-100.0) fL MCH (25.0-35.0) pg MCHC (31.0-37.0) g/dL RDW (11.5-15.5) % Plt Count (150-450) k/uL MPV Neutrophils % % Lymphocytes % % Monocytes % % Eosinophils % % Basophils % % Neutrophils # (1.3-7.7) k/uL Lymphocytes # (1.0-4.8) k/uL Monocytes # (0-1.0) k/uL Eosinophils # (0-0.7) k/uL Basophils # (0-0.2) k/uL PT 10.2 (9.0-12.0) sec INR 0.9 (<1.2) APTT 27.5 (22.0-30.0) sec Sodium (137-145) mmol/L Potassium (3.5-5.1) mmol/L Chloride (98-107) mmol/L Carbon Dioxide (22-30) mmol/L Anion Gap mmol/L BUN (9-20) mg/dL Creatinine (0.66-1.25) mg/dL Est GFR (CKD-EPI)AfAm (>60 ml/min/1.73 sqM) Est GFR (CKD-EPI)NonAf (>60 ml/min/1.73 sqM) Glucose (74-99) mg/dL Calcium (8.4-10.2) mg/dL Magnesium (1.6-2.3) mg/dL Total Bilirubin (0.2-1.3) mg/dL AST (17-59) U/L ALT (4-49) U/L Alkaline Phosphatase (38-126) U/L Troponin I <0.012 (0.000-0.034) ng/mL Total Protein (6.3-8.2) g/dL Albumin (3.5-5.0) g/dL Amylase (30-110) U/L Lipase (23-300) U/L Urine Color Urine Appearance (Clear) Urine pH (5.0-8.0) Ur Specific [place] (1.001-1.035) Urine Protein (Negative) Urine Glucose (UA) (Negative) Urine Ketones (Negative) Urine Blood (Negative) Urine Nitrite (Negative) Urine Bilirubin (Negative) Urine Urobilinogen (<2.0) mg/dL Ur Leukocyte Esterase (Negative) - EKG Data -: EKG Interpreted by Ca EKG shows normal: sinus rhythm Rate: bradycardia EKG Comments: Ventricular rate 54 bpm, [place] interval 176 ms, QRS duration 90 ms, QTC 424 ms, PareT axes 72/64/72. Sinus bradycardia, possible left atrial enlargement, septal infarct age undetermined, abnormal ECG. EKG similar previous studies. - Radiology Data Radiology results: report reviewed, image reviewed Chest x-ray: Normal chest. No change. Disposition Clinical Impression: Adverse reaction to drug Disposition: HOME SELF-CARE Condition: Stable Additional Instructions: Please return to the Emergency Department if symptoms worsen or any other concer ns. Follow-up with paraffin machine operator as planned. Discontinue taking Cozaar. Call primary care to see if his alternative. Is patient prescribed a controlled substance at d/c from ED?: No Referrals: Eduardo Thapa MD [Primary Care Provider] - 1-2 days Time of Disposition: 17:55
[2021-05-17 18:10] VITALS: BP 163/99; PULSE 70
== END 2021-05-17 18:10 | disposition home or self-care (01) ==
LOC: EC 15:32
DX: I10 Essential (primary) hypertension (principal); T46.5X5A Adverse effect of other antihypertensive drugs, initial encounter; E78.5 Hyperlipidemia, unspecified; I25.2 Old myocardial infarction; M19.90 Unspecified osteoarthritis, unspecified site; F17.200 Nicotine dependence, unspecified, uncomplicated
CPT/HCPCS: 36415; 71046; 80053; 81003; 82150; 83690; 83735; 84484; 85025; 85610; 85730; 93005; 99284

== ENCOUNTER → 2021-12-05 | Outpatient (CLI) | payer MEDICARE | END | disposition home or self-care (01) | LOC: LABWHC1 07:25 | PROVIDERS: ATTEND Urology | DX: R97.20 Elevated prostate specific antigen [PSA] (principal) | CPT/HCPCS: 36415; 84153 ==

== ENCOUNTER 2022-01-16 09:43 | Emergency (ER) | payer MEDICARE ==
[2022-01-16 09:51] VITALS: BP 132/81; PULSE 72; RESP 18; TEMP 98.2
--- NOTE | 2022-01-16 10:04 | XR ---
Right foot HISTORY: Trauma and pain 3 views of the right foot Degenerative changes present at the metatarsophalangeal joint of the first digit. Small ossific densi ties present just lateral to the proximal aspect of the distal phalanx of the first digit of the righ t foot. There is associated soft tissue swelling present. No evident dislocation. Lucency is also pre sent at the level of the tuft of the first digit. IMPRESSION: Small intra-articular chip fracture noted lateral aspect at the interphalangeal joint of the first digit minimal displacement, nondisplaced tuft fracture first digit
--- NOTE | 2022-01-16 10:28 | ED ---
Lower Extremity Injury HPI - General Chief Complaint: Extremity Injury, Lower Stated Complaint: Rt Foot Injury Time Seen by Provider: 01/16/22 10:12 Source: patient, RN notes reviewed Mode of arrival: ambulatory Limitations: no limitations - History of Present Illness Initial Comments: Patient changes left great toe last night when he had apparently dropped a safe on it when he was moving it. Complaining of throbbing pain to the toe which is exacerbated by movement, alleviated by rest. No other injuries. No headache, no fever or chills, no changes in vision or hearing, no sore throat or difficulty with speech, no neck pain, no chest pain or shortness of breath, no abdominal pain, no nausea or vomiting, no changes in urination or bowel movements, no numbness or tingling, no skin rashes or lesions. MD Complaint: foot injury (Right great toe) Injury: Toes: Right Type of Injury: blunt Improves With: rest Worsens With: weight bearing, movement, palpation Context: direct blow - Related Data Home Medications Medication Instructions Recorded Confirmed Diltiazem HCl [Diltiazem HCl 24Hr 180 mg PO DAILY 03/30/16 03/12/21 ER ([place])] Isosorbide Mononitrate ER [Imdur] 30 mg PO DAILY 03/30/16 03/12/21 Baclofen [Lioresal] 20 mg PO QID PRN 12/16/17 03/12/21 HYDROcodone/APAP 7.5-325MG [[place] 1 tab PO Q4HR PRN 12/16/17 03/12/21 7.5-325] Atorvastatin (Unknown Dose) 1 tab PO DAILY 05/15/19 03/12/21 Previous Rx's Medication Instructions Recorded Aspirin EC [Ecotrin Low Dose] 81 mg PO DAILY #1 tablet. 03/31/16 Acetaminophen [Tylenol] 650 mg PO Q6HR #30 tab 03/13/21 Allergies Allergy/AdvReac Type Severity Reaction Status Date / Time Penicillins Allergy Rash/Hives Verified 03/12/21 08:53 Review of Systems ROS Statement: Those systems with pertinent positive or pertinent negative responses have been documented in the HPI. ROS Other: All systems not noted in ROS Statement are negative. Past Medical History Past Medical History: Chest Pain / Angina, Hyperlipidemia, Hypertension, Myocardial Infarction ([place]), Osteoarthritis (OA), Prostate Disorder Additional Past Medical History / Comment(s): BPH, DDD, SHATTERED HEELS 2012 , SWOLLEN LYMPH NODE RIGHT GROIN. Last Myocardial Infarction Date:: 2011 History of Any Multi-Drug Resistant Organisms: None Reported Past Surgical History: Heart Catheterization, Hernia Repair, Orthopedic Surgery Additional Past Surgical History / Comment(s): 2013 cardiac cath-normal, R IN GUINAL HERNIA, umbilical HERNIA, ARTHROSCOPY RT KNEE, prostate bx-negative, colonoscopy Past Anesthesia/Blood Transfusion Reactions: No Reported Reaction Additional Past Anesthesia/Blood Transfusion Reaction / Comment(s): . Past Psychological History: No Psychological Hx Reported Smoking Status: Current every day smoker Past Alcohol Use History: None Reported Past Drug Use History: None Reported - Past Family History Father Family Medical History: Cancer Mother Family Medical History: No Reported History Additional Family Medical History / Comment(s): . General Exam - General Exam Comments Initial Comments: Nontoxic male, vital signs reviewed Limitations: no limitations General appearance: alert, in no apparent distress Head exam: Present: atraumatic, normocephalic, normal inspection Eye exam: Present: normal appearance, EOMI Neck exam: Present: normal inspection Respiratory exam: Present: normal lung sounds bilaterally. Absent: respiratory distress, wheezes, rales, rhonchi, stridor Cardiovascular Exam: Present: regular rate, normal rhythm, normal heart sounds, other (Pedal pulses intact. Capillary refill less than 2 seconds.). Absent: systolic murmur, diastolic murmur, rubs, gallop, clicks GI/Abdominal exam: Present: soft. Absent: tenderness Extremities exam: Present: tenderness, normal capillary refill, other (Patient has some tenderness through the IP joint of the right toe. No break in skin integrity. Range of motion limited by pain.). Absent: pedal edema, joint swelling, calf tenderness (No erythema, no evidence of infectious or vascular insult) Back exam: Present: normal inspection, full ROM Neurological exam: Present: alert, oriented X3, CN II-XII intact Psychiatric exam: Present: normal affect, normal mood Course Vital Signs 01/16/22 09:49 Temperature 98.2 F Pulse Rate 72 Respiratory 18 Rate Blood Pressure 132/81 O2 Sat by Pulse 98 Oximetry Disposition Clinical Impression: Nondisplaced unspecified fracture of right great toe, initial encounter for closed fracture, Cigarette smoker Narrative: Distal phalanx fracture Disposition: HOME SELF-CARE Instructions (If sedation given, give patient instructions): How to Stop Smoking (ED), Toe Fracture (ED) Additional Instructions: Follow-up with your regular physician as directed. Return to the ER immediately if any symptoms worsen, new symptoms arise, or any other problems develop. Make an appointment with the orthopedic physician as directed. Continue dorcas taping of the first and second toes. Elevation, ice Taking her home pain medications as directed. You can also use [id number] acetaminophen in place of your no pain medication if the pain is mild. Is patient prescribed a controlled substance at d/c from ED?: No Referrals: Fermín Rapp DO [Doctor of Osteopathic Medicine] - 01/22/22 Time of Disposition: 10:55
== END 2022-01-16 11:06 | disposition home or self-care (01) ==
LOC: EC 09:43
DX: S92.415A Nondisplaced fracture of proximal phalanx of left great toe, initial encounter for closed fracture (principal); E78.5 Hyperlipidemia, unspecified; I10 Essential (primary) hypertension; I25.2 Old myocardial infarction; M19.90 Unspecified osteoarthritis, unspecified site; F17.200 Nicotine dependence, unspecified, uncomplicated; Z79.82 Long term (current) use of aspirin; Z88.0 Allergy status to penicillin; W22.8XXA Striking against or struck by other objects, initial encounter
CPT/HCPCS: 99283

== ENCOUNTER → 2022-07-29 | Outpatient (CLI) | payer MEDICARE ==
--- NOTE | 2022-07-31 10:04 | CT ---
EXAMINATION TYPE: CT chest wo con DATE OF EXAM: 07/29/2022 COMPARISON: CTA chest July 19, 2022 HISTORY: Effusion and empyema. CT DLP: 140.8 mGycm. Automated Exposure Control for Dose Reduction was Utilized. TECHNIQUE: CT scan of the thorax is performed without IV contrast. FINDINGS: LUNGS: Moderate underlying emphysematous change redemonstrated. Posterior apical masslike consolidati on axial image 9 has similar appearance to prior study favoring scarring. Persistent loculated pleura l fluid collection in the left lung base with posterior and lateral component axial image 40 has leighann lar appearance to prior CT. There is associated atelectasis and/or consolidation posteriorly and ante riorly noted. Stable 1.4 x 1.0 cm low dense nodule axial image 34 could reflect fluid trapped in the fissure versus solid nodule. Right lung remains clear. Some left-sided volume loss with left-sided di aphragmatic elevation redemonstrated and interval resolution of foci of gas within the lateral last a spect of the fluid collection with some improvement but persistent nondependent gas in the posterior portion of the fluid collection. MEDIASTINUM: Lack of IV contrast is noted to limit evaluation for mediastinal and especially hilar ad enopathy. There is stable slightly enlarged pericarinal lymph node axial image 24 measuring 1.7 x 1.0 cm. No cardiomegaly or pericardial effusion is seen. Mild coronary artery calcification is present . OTHER: Left-sided PICC line redemonstrated terminating at cavoatrial junction. IMPRESSION: Overall stable findings. Small nonsimple left-sided pleural fluid collection in the left lung base with posterior and lateral component suspicious for empyema. This is grossly stable in size from prior CT. Correlate clinically.0
== END | disposition home or self-care (01) ==
LOC: RADCTMAIN 06:38
PROVIDERS: ATTEND Thoracic Surgery (Cardiothoracic Vascular Surgery)
DX: J90 Pleural effusion, not elsewhere classified (principal)
CPT/HCPCS: 71250

== ENCOUNTER 2022-08-05 11:47 | Day surgery (SDC) | payer MEDICARE ==
[2022-08-04 10:59] VITALS: BMI 20.2
[~2022-08-05 11:47] MED LIST changes: +ALBUTEROL NEB (CONC) 2.5 MG/0.5 ML INHALATION ONE; +ATROPINE SULFATE 0.4 MG/ML 1 ML VIAL IM ONE; -DEXAMETHASONE SOD PHOSPHATE 4 MG/ML 1 ML VIAL IV ONE; -HEPARIN SODIUM,PORCINE/PF 5,000 UNIT/0.5 ML SYRINGE SQ PRN; -HYDROmorphone 0.5 MG/0.5 ML SYRINGE IVP PRN; +LIDOCAINE 1% (10MG/ML) FOR IV START INTRADERMA PRN; +LIDOCAINE 2% (PF) 20 MG/ML 5 ML VIAL INHALATION ONE; +LIDOCAINE VISCOUS 300 MG/15 ML CUP MUCOUS MEM ONE; -ONDANSETRON 4 MG/2 ML VIAL IVP ONE
[2022-08-05 12:19] VITALS: TEMP 97.4
[2022-08-05] MEDS ORDERED: PROPOFOL 10 MG/ML 20 ML VIAL IV ONE (12:52)
[2022-08-05] MEDS ORDERED: LIDOCAINE 2% INJ 20 MG/ML (2 ML VIAL) ONE (12:52)
[2022-08-05] MEDS ORDERED: LIDOCAINE 2% INJ 20 MG/ML INTRATRACH ONE (13:03)
[2022-08-05 13:14] VITALS: RESP 18
[2022-08-05 13:49] VITALS: PULSE 79
[2022-08-05 13:50] VITALS: BP 109/64
[2022-08-05 19:48] LABS: Appearance,BF Clumped
--- NOTE | 2022-08-05 20:46 | PCN ---
PROCEDURE NOTE PROCEDURES: Bronchoscopy, airway examination, therapeutic lavage, BAL, lingula. PREOPERATIVE DIAGNOSES: Empyema, hemoptysis, pneumonia. POSTOPERATIVE DIAGNOSES: Empyema, hemoptysis, pneumonia. OPERATORS: Dr. Hansen and Dr. Walker. There was informed consent and universal timeout. ANESTHESIA PROVIDED: General anesthesia. The patient's procedure was done in room #1 Endoscopy. DESCRIPTION OF PROCEDURE: After the patient was adequately sedated and being fully monitored, the bronchoscope was inserted through the right nostril. It passed through the right nasopharynx into the oropharynx. The hypopharynx was identified and topicalized. The hypopharyngeal structures including anterior commissure, true cords, false cords, arytenoids, piriform sinuses right and left, and vallecula, were all evaluated and found to be normal. There was no hypopharyngeal mass. Next, after topicalization, the bronchoscope was pushed through the glottic opening into the trachea. The trachea appeared relatively normal. Tracheal zan was sharp. There were no lesions within the trachea. There was no blood. The right and left mainstem were topicalized. Next, the right upper lobe and its 3 segments, the right middle lobe and its 2 segments, and the right lower lobe and its 5 segments were all evaluated as were the left upper lobe proper, lingula and all 4 segments of the left lower lobe. Of note was the fact that there was diffuse airway erythema and hyperemia. There was moderate amount of bronchitis throughout. There was some mucosal friability. Secretions were noted on both sides, more so on the left side particularly in the left lower lobe. They were thick and very viscid. After some of the secretions were suctioned with the aid of saline lavage, the bronchoscope was wedged into the lingula. A formal BAL took place. The patient tolerated the procedure well. 30 mL of purulent material was recovered, was sent to the laboratory for analysis including cell count, differential, as well as cultures. Will also send it for cytology. The patient tolerated the procedure well, will be recovered. No additional recommendations were made. I will speak to his , Sugey, after the procedure. MMODL / IJN: [id number] /
== END 2022-08-05 13:55 | disposition home or self-care (01) ==
LOC: ORWHC2ENDO 11:47
PROVIDERS: ATTEND Internal Medicine Critical Care Medicine
DX: C34.32 Malignant neoplasm of lower lobe, left bronchus or lung (principal); J40 Bronchitis, not specified as acute or chronic; J18.9 Pneumonia, unspecified organism; R04.2 Hemoptysis; J43.9 Emphysema, unspecified; E78.5 Hyperlipidemia, unspecified; I10 Essential (primary) hypertension; N40.0 Benign prostatic hyperplasia without lower urinary tract symptoms; I25.2 Old myocardial infarction; M19.90 Unspecified osteoarthritis, unspecified site; Z87.891 Personal history of nicotine dependence; Z90.89 Acquired absence of other organs; Z98.890 Other specified postprocedural states; Z95.5 Presence of coronary angioplasty implant and graft; Z80.1 Family history of malignant neoplasm of trachea, bronchus and lung; Z79.899 Other long term (current) drug therapy; Z79.82 Long term (current) use of aspirin
CPT/HCPCS: 88108; 88305; 89050; 87252; 87070; 87205; 87116; 87102; 87206; 31624; J2001 ×2; J0461; J2704; 87496; 87498; 87502; 87529; 87634; 87798

== ENCOUNTER → 2022-08-17 | Outpatient (CLI) | payer MEDICARE ==
--- NOTE | 2022-08-17 13:06 | US ---
EXAMINATION TYPE: US venous doppler duplex UE LT DATE OF EXAM: 08/17/2022 COMPARISON: NONE CLINICAL HISTORY: 61-year-old male M79.622 PAIN IN UPPER LEFT ARM. PICC Line removed approximately 2 weeks ago. Pain left arm SIDE PERFORMED: Left Findings: Left Arm: No evidence of DVT. Superficial thrombus left basilic vein IMPRESSION: 1. Exam positive for SVT involving the basilic vein. 2. No evidence for DVT within the left upper extremity.
== END | disposition home or self-care (01) ==
LOC: RADUSWWP 12:19
PROVIDERS: ATTEND Internal Medicine Critical Care Medicine
DX: I47.1 Supraventricular tachycardia (principal)

== ENCOUNTER → 2022-10-16 | Outpatient (CLI) | payer MEDICARE, OTHER ==
[2022-10-16 14:28] LABS: Basophils # (A) 0.09 X 10*3/uL (0.00-0.10); Eosinophils # (A) 0.14 X 10*3/uL (0.04-0.35); Eosinophils % (A) 1.6 %; HCT 47.5 % (39.6-50.0); HGB 15.7 g/dL (13.0-17.0); Immature Grans, Automated 0.3 %; Lymphocytes # (A) 2.67 X 10*3/uL (0.90-5.00); Lymphocytes % (A) 30.2 %; MCH 26.8 pg (27.0-32.0); MCHC 33.1 g/dL (32.0-37.0); MCV 81.2 fL (80.0-97.0); Mean Platelet Volume 10.1 fL (9.5-12.2); Monocytes # (A) 0.83 X 10*3/uL (0.20-1.00); Monocytes % (A) 9.4 %; NRBC Per 100 WBC 0 /100 WBCS (0.0-0.0); Neutrophils # (A) 5.08 X 10*3/uL (1.80-7.70); Neutrophils % (A) 57.5 %; Platelet Count 429 X 10*3/uL (140-440); RBC 5.85 X 10*6/uL (4.40-5.60); WBC 8.84 X 10*3/uL (4.50-10.00)
[2022-10-16 15:11] LABS: ALT 12 U/L (10-49); AST 15 U/L (14-35); African American GFR (CKD) 104.9 (60.0-200.0); Albumin 4.3 g/dL (3.8-4.9); Albumin/Globulin Ratio 1.91 (1.60-3.17); Alkaline Phosphatase 102 U/L (41-126); BUN/Creat Ratio 10.21 Ratio (12.00-20.00); Blood Urea Nitrogen 9.3 mg/dL (9.0-27.0); Calcium 9.8 mg/dL (8.7-10.3); Carbon Dioxide 24.3 mmol/L (20.0-27.5); Chloride 107 mmol/L (96-109); Chol/HDL Ratio 4.79 Ratio; Globulin 2.3 g/dL (1.6-3.3); Glucose 85 mg/dL (70-110); LDL Cholesterol,Calculated 165.6 mg/dL (0.0-131.0); Non-African American GFR(CKD) 90.5 (60.0-200.0); Sodium 143 mmol/L (135-145); Total Bilirubin <0.15 mg/dL (0.30-1.20); Total Protein 6.6 g/dL (6.2-8.2)
== END | disposition home or self-care (01) ==
LOC: LABWHC1 09:38
PROVIDERS: ATTEND Internal Medicine Interventional Cardiology
DX: I25.10 Atherosclerotic heart disease of native coronary artery without angina pectoris (principal); E78.2 Mixed hyperlipidemia
CPT/HCPCS: 36415; 80053; 80061; 84443; 85025

== ENCOUNTER → 2022-10-16 | Outpatient (CLI) | payer MEDICARE, OTHER ==
--- NOTE | 2022-10-16 10:47 | XR ---
EXAMINATION TYPE: XR foot complete LT DATE OF EXAM: 10/16/2022 COMPARISON: NONE HISTORY: Pain TECHNIQUE: Three views are submitted. FINDINGS: The osseous structures are intact. There is no acute fracture or dislocation. Hypertrophic arthrop athy first MTP joint. Tiny plantar calcaneal spur.. IMPRESSION: 1. Hypertrophic arthropathy first MTP joint.
== END | disposition home or self-care (01) ==
LOC: RADXRMAIN 10:27
PROVIDERS: ATTEND Internal Medicine
DX: S99.922A Unspecified injury of left foot, initial encounter (principal); M19.072 Primary osteoarthritis, left ankle and foot

== ENCOUNTER → 2023-02-09 | Outpatient (CLI) | payer MEDICARE, OTHER | LOC: CPPFTMAIN 07:30 | PROVIDERS: ATTEND Internal Medicine | DX: J44.9 Chronic obstructive pulmonary disease, unspecified (principal); F17.200 Nicotine dependence, unspecified, uncomplicated; Z88.0 Allergy status to penicillin; Z79.82 Long term (current) use of aspirin | CPT/HCPCS: 94060; 94726; 94729 ==

== ENCOUNTER → 2023-04-09 | Outpatient (CLI) | payer MEDICARE, OTHER ==
[2023-04-09 11:15] LABS: ALT 14 U/L (10-49); AST 18 U/L (14-35); Chol/HDL Ratio 2.92 Ratio; LDL Cholesterol,Calculated 96.9 mg/dL (0.0-131.0); VLDL Calculation 10.86 mg/dL (5.00-40.00)
== END | disposition home or self-care (01) ==
LOC: LABWHC1 07:05
PROVIDERS: ATTEND Internal Medicine Interventional Cardiology
DX: E78.2 Mixed hyperlipidemia (principal); R97.20 Elevated prostate specific antigen [PSA]
CPT/HCPCS: 36415; 80061; 84153; 84450; 84460

== ENCOUNTER → 2024-02-28 | Outpatient (CLI) | payer MEDICARE, OTHER ==
[2024-02-28 16:27] LABS: ALT 16 U/L (10-49); AST 21 U/L (14-35); Albumin 4.3 g/dL (3.8-4.9); Albumin/Globulin Ratio 2.05 Ratio (1.60-3.17); Alkaline Phosphatase 101 U/L (41-126); Blood Urea Nitrogen 11.6 mg/dL (9.0-27.0); Calcium 9.8 mg/dL (8.7-10.3); Carbon Dioxide 26.1 mmol/L (21.6-31.8); Chloride 107 mmol/L (96-109); Chol/HDL Ratio 3.19 Ratio; Globulin 2.1 g/dL (1.6-3.3); Glucose 91 mg/dL (70-110); LDL Cholesterol,Calculated 88.8 mg/dL (0.0-131.0); Potassium 4.6 mmol/L (3.5-5.5); Sodium 142 mmol/L (135-145); Total Bilirubin 0.4 mg/dL (0.3-1.2); Total Protein 6.4 g/dL (6.2-8.2); VLDL Calculation 16.86 mg/dL (5.00-40.00)
== END | disposition home or self-care (01) ==
LOC: LABWHC1 08:27
PROVIDERS: ATTEND Nurse Practitioner Adult Health
DX: I10 Essential (primary) hypertension (principal); E78.2 Mixed hyperlipidemia
CPT/HCPCS: 36415; 80053; 80061

== ENCOUNTER → 2025-03-03 | Outpatient (CLI) | payer MEDICARE, OTHER ==
[2025-03-03 13:46] LABS: Blood Urea Nitrogen 12.2 mg/dL (9.0-27.0); Chloride 107 mmol/L (96-109); Chol/HDL Ratio 3.27 Ratio; Glucose 96 mg/dL (70-110); LDL Cholesterol,Calculated 92.7 mg/dL (0.0-131.0); Potassium 4.6 mmol/L (3.5-5.5); Sodium 141 mmol/L (135-145); VLDL Calculation 12.84 mg/dL (5.00-40.00)
[2025-03-03 13:47] LABS: ALT 90 U/L (10-49); AST 45 U/L (14-35); Albumin 4.2 g/dL (3.8-4.9); Alkaline Phosphatase 86 U/L (41-126); Calcium 9.3 mg/dL (8.7-10.3); Carbon Dioxide 22.8 mmol/L (21.6-31.8); Total Bilirubin 0.6 mg/dL (0.3-1.2); Total Protein 6.2 g/dL (6.2-8.2)
== END | disposition home or self-care (01) ==
LOC: LABWHC1 08:13
PROVIDERS: ATTEND Internal Medicine Interventional Cardiology
DX: E78.2 Mixed hyperlipidemia (principal)
CPT/HCPCS: 36415; 80053; 80061